=== PATIENT | male | born 1970 | race Caucasian/White ===

== ENCOUNTER 2017-07-01 19:58 | Emergency (ER) | payer OTHER ==
[2017-07-01] MEDS ORDERED: DIPH,PERTUS(ACELL)TETVAC-LF 0.5 ML VIAL IM ONE (20:04)
[2017-07-01 20:08] VITALS: TEMP 98.1
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
[2017-07-01 21:12] VITALS: RESP 18
[2017-07-01] MEDS ORDERED: KETOROLAC 30 MG/ML 1 ML VIAL IVP STA (21:43)
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
[2017-07-01 23:13] VITALS: BP 120/72; PULSE 81
== END 2017-07-01 22:37 | disposition home or self-care (01) ==
LOC: EC 19:58
DX: S91.011A Laceration without foreign body, right ankle, initial encounter (principal); Z23 Encounter for immunization; I10 Essential (primary) hypertension; Z79.899 Other long term (current) drug therapy; V86.59XA Driver of other special all-terrain or other off-road motor vehicle injured in nontraffic accident, initial encounter; Y92.89 Other specified places as the place of occurrence of the external cause
CPT/HCPCS: 71010; 72170; 73610; 90715; 99283; 96374; 12002; 90471; J1885

== ENCOUNTER 2017-07-03 09:58 | Inpatient (IN) | payer BC, OTHER ==
[2017-07-03] MEDS ORDERED: MORPHINE SULFATE 4 MG/ML SYRINGE IVP PRN (14:27)
[2017-07-03] MEDS ORDERED: NALOXONE 0.4 MG/ML 1 ML VIAL IV PRN (14:30)
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
[2017-07-03] MEDS: SODIUM CHLORIDE 0.9% 1,000 ML IV SCH ×2 (14:59→21:54)
[2017-07-03] MEDS ORDERED: ONDANSETRON 4 MG/2 ML VIAL IVP PRN (16:35)
[2017-07-03 17:09] LABS: Glucose,Whole Blood 104 mg/dL (75-99)
[2017-07-03] MEDS: LISINOPRIL 20 MG TAB PO SCH (17:29)
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
[2017-07-03] MEDS: MAGNESIUM HYDROXIDE 2,400 MG/10 ML CUP PO PRN (19:57)
[2017-07-03] MEDS: KETOROLAC 30 MG/ML 1 ML VIAL IVP SCH (19:57)
[2017-07-03] MEDS: TAMSULOSIN 0.4 MG CAP.ER.24H PO SCH (19:57)
[2017-07-03] MEDS: MORPHINE SULFATE 4 MG/ML SYRINGE IVP PRN (20:55)
[2017-07-04] MEDS: KETOROLAC 30 MG/ML 1 ML VIAL IVP SCH ×5 (00:44→23:31)
[2017-07-04 01:09] LABS: Glucose,Whole Blood 108 mg/dL (75-99)
[2017-07-04] MEDS: MORPHINE SULFATE 4 MG/ML SYRINGE IVP PRN ×2 (05:03→08:27)
[2017-07-04 07:32] LABS: Glucose,Whole Blood 108 mg/dL (75-99)
--- NOTE | 2017-07-04 08:09 | P.PN ---
Subjective The patient was admitted to the hospital last night with an acute ureteral calculus on the left. His 6 mm at the left ureterovesical junction. He feels much better this morning. The morphine has controlled his pain. He is resting comfortably this morning. We discussed spontaneous passage versus surgical manipulation. We'll see how he does over the next 12-24 hours before making a final decision as to intervention. This has been discussed at length with the patient. Objective - Vital Signs Vital signs: Vital Signs Temp 98.2 F 07/03/17 20:45 Pulse 97 07/04/17 00:00 Resp 16 07/04/17 00:00 BP 153/78 07/03/17 20:45 Pulse Ox 95 07/03/17 20:45 Intake & Output 07/03/17 07/04/17 07/04/17 18:59 06:59 18:59 Intake Total 200 600 Balance 200 600 Weight 106.141 kg Intake: Intake, IV Titration 200 600 Amount Sodium Chloride 0.9% 1, 200 600 000 ml @ 100 mls/hr IV . Q10H [facility] Rx#:[id number] Other: Voiding Method Toilet Urinal # Voids 2 - Labs Labs: Abnormal Lab Results - Last 24 Hours (Table) 07/03/17 07/04/17 07/04/17 Range/Units 16:26 01:08 07:26 POC Glucose (mg/dL) 104 H 108 H 108 H (75-99) mg/dL
[2017-07-04] MEDS: TAMSULOSIN 0.4 MG CAP.ER.24H PO SCH (08:26)
[2017-07-04] MEDS: LISINOPRIL 20 MG TAB PO SCH (08:27)
[2017-07-04] MEDS: SODIUM CHLORIDE 0.9% 1,000 ML IV SCH (08:29)
[2017-07-04 08:47] LABS: ALT 33 U/L (21-72); AST 26 U/L (17-59); Alkaline Phosphatase 41 U/L (38-126); Anion Gap 6 mmol/L; Blood Urea Nitrogen 18 mg/dL (9-20); Calcium 8.1 mg/dL (8.4-10.2); Carbon Dioxide 26 mmol/L (22-30); Chloride 109 mmol/L (98-107); Glucose 97 mg/dL (74-99); Non-African American GFR(MDRD) 51 (>60 ml/min/1.73 sqM); Potassium 4.1 mmol/L (3.5-5.1); Sodium 141 mmol/L (137-145); Total Bilirubin 0.9 mg/dL (0.2-1.3); Total Protein 5.4 g/dL (6.3-8.2)
[2017-07-04] MEDS ORDERED: LISINOPRIL 20 MG TAB PO SCH (09:00)
[2017-07-04 09:02] LABS: Basophils % (A) 0 %; CH 32.1; CHCM 35.1; Eosinophils % (A) 1 %; HCT 35.2 % (39.0-53.0); HDW 2.76; HGB 12.4 gm/dL (13.0-17.5); Luc # (Auto) 0.08; Luc % (Auto) 1; Lymphocytes # (A) 0.7 k/uL (1.0-4.8); Lymphocytes % (A) 9 %; MCH 32.3 pg (25.0-35.0); MCHC 35.2 g/dL (31.0-37.0); MCV 91.8 fL (80.0-100.0); Monocytes # (A) 0.5 k/uL (0-1.0); Monocytes % (A) 6 %; Neutrophils # (A) 6.7 k/uL (1.3-7.7); Neutrophils % (A) 84 %; RBC 3.84 m/uL (4.30-5.90); WBC 8.1 k/uL (3.8-10.6); WBC (Perox) 8.38
[2017-07-04 12:13] LABS: Glucose,Whole Blood 103 mg/dL (75-99)
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
[2017-07-04] MEDS: MAGNESIUM HYDROXIDE 2,400 MG/10 ML CUP PO PRN (15:38)
[2017-07-04 22:18] VITALS: PULSE 100; RESP 18
[2017-07-05] MEDS: KETOROLAC 30 MG/ML 1 ML VIAL IVP SCH ×2 (06:32→12:25)
--- NOTE | 2017-07-05 06:42 | P.PN ---
Subjective The patient is feeling much better. His pain is controlled with Toradol. He' ll be discharged home for spontaneous passage. I will see him in one week. Objective - Vital Signs Vital signs: Vital Signs Temp 98.4 F 07/04/17 22:17 Pulse 100 07/04/17 23:09 Resp 18 07/04/17 23:09 BP 130/66 07/04/17 22:17 Pulse Ox 92 L 07/04/17 22:17 Intake & Output 07/04/17 07/04/17 07/05/17 06:59 18:59 06:59 Intake Total 600 1200 Balance 600 1200 Weight 106.141 kg Intake: Intake, IV Titration 600 1200 Amount Sodium Chloride 0.9% 1, 600 1200 000 ml @ 100 mls/hr IV . Q10H [facility] Rx#:[id number] Other: Voiding Method Toilet Toilet Toilet Urinal Urinal Urinal # Voids 2 3 2 - Labs CBC & Chem 7: 07/04/17 07:41 07/04/17 07:41 Labs: Abnormal Lab Results - Last 24 Hours (Table) 07/04/17 07/04/17 07/04/17 Range/Units 07:26 07:41 07:41 RBC 3.84 L (4.30-5.90) m/uL Hgb 12.4 L (13.0-17.5) gm/dL Hct 35.2 L (39.0-53.0) % Plt Count 136 L (150-450) k/uL Lymphocytes # 0.7 L (1.0-4.8) k/uL Chloride 109 H (98-107) mmol/L Creatinine 1.49 H (0.66-1.25) mg/dL POC Glucose (mg/dL) 108 H (75-99) mg/dL Calcium 8.1 L (8.4-10.2) mg/dL Total Protein 5.4 L (6.3-8.2) g/dL Albumin 3.2 L (3.5-5.0) g/dL 07/04/17 Range/Units 12:02 RBC (4.30-5.90) m/uL Hgb (13.0-17.5) gm/dL Hct (39.0-53.0) % Plt Count (150-450) k/uL Lymphocytes # (1.0-4.8) k/uL Chloride (98-107) mmol/L Creatinine (0.66-1.25) mg/dL POC Glucose (mg/dL) 103 H (75-99) mg/dL Calcium (8.4-10.2) mg/dL Total Protein (6.3-8.2) g/dL Albumin (3.5-5.0) g/dL
[2017-07-05] MEDS: SODIUM CHLORIDE 0.9% 1,000 ML IV SCH ×3 (08:13→12:29)
[2017-07-05] MEDS: LISINOPRIL 20 MG TAB PO SCH (08:19)
[2017-07-05] MEDS: TAMSULOSIN 0.4 MG CAP.ER.24H PO SCH (08:19)
[2017-07-05 08:42] VITALS: BP 151/90; TEMP 99.2
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
== END 2017-07-05 15:35 | disposition home or self-care (01) | DRG 694 ==
LOC: 5MS5E 12:39
PROVIDERS: ADMIT Internal Medicine; ATTEND Internal Medicine
DX: N13.2 Hydronephrosis with renal and ureteral calculous obstruction (principal); R16.1 Splenomegaly, not elsewhere classified; I10 Essential (primary) hypertension; E78.5 Hyperlipidemia, unspecified; R91.8 Other nonspecific abnormal finding of lung field; T14.8 Other injury of unspecified body region; X58.XXXA Exposure to other specified factors, initial encounter; Y92.9 Unspecified place or not applicable; Z79.899 Other long term (current) drug therapy; Z87.442 Personal history of urinary calculi; Z82.49 Family history of ischemic heart disease and other diseases of the circulatory system
CPT/HCPCS: 80053; 85025

== ENCOUNTER → 2017-07-10 | Outpatient (CLI) | payer BC ==
--- NOTE | 2017-07-10 17:12 | XR ---
Abdomen HISTORY: Pain 20.0, kidney stone Frontal view of the abdomen on 2 images No comparisons Calcification over the lower pole right kidney measures approximately 9 mm. Smaller calcifications pr esent over both kidneys measuring only 2 to 3 mm, approximately 3-4 on the right one or 2 on the left . Calcifications are present within the pelvis which are indeterminate. Lung bases are clear. No mallorie l obstruction, no pneumoperitoneum IMPRESSION: Bilateral nephrolithiasis. Additional findings above.
== END | disposition home or self-care (01) ==
LOC: RADXRMAIN 15:32
PROVIDERS: ATTEND Urology
DX: N20.0 Calculus of kidney (principal)
CPT/HCPCS: 74000

== ENCOUNTER → 2017-09-13 | Outpatient (CLI) | payer BC ==
--- NOTE | 2017-09-19 13:38 | CT ---
EXAMINATION TYPE: CT chest w con DATE OF EXAM: 09/13/2017 COMPARISON: CT abdomen pelvis dated 07/03/2017 from [facility]. Report is reviewed. HISTORY: Abnormal lung findings. CT DLP: 463.8 mGycm, Automated exposure control for dose reduction was used. CONTRAST: Performed injected with 100 mL of Omnipaque 350. TECHNIQUE: Axial images were obtained at 5 mm thick sections. Reconstructed images are reviewed on [employer] computer in the coronal plane. FINDINGS: Portion of the thyroid visualized is normal. On lung windows there is a 0.5 cm peripheral posterior lateral left lung base nodule. Series 4 image 40's 7. There is a 0.5 cm linear opacity in the anterior periphery right middle lobe, series 4 image 37. A similar 0.5 cm linear opacity within the right middle lobe. Series 4 image 39. These are presen t within the [id number] on the lung windows from 07/03/2017 and are stable. There is a 0.6 cm nodule at the left mid hilar region lingula. Series 4 image 32. No enlarged mediastinal or hilar adenopathy is evident. There is a 0.8 cm pretracheal lymph node ne ar the level of the varun. The ascending aorta diameter at the level of the main pulmonary artery is 3.6 cm. The main pulmonary artery diameter at the bifurcation is 2.[address] sections are obtained through the upper abdomen. Abdomen is essentially unremarkable. IMPRESSIONS: 1. Small lower lung field nodules appear stable from the comparison of June 2017. 2. An additional nodule is identified within the [id number] at the left midlung measuring 0.5 cm. 3. Follow-up CT chest with contrast in 6 months is recommended to confirm stability.
== END | disposition home or self-care (01) ==
LOC: RADCTMAIN 18:47
PROVIDERS: ATTEND Internal Medicine Pulmonary Disease
DX: R91.8 Other nonspecific abnormal finding of lung field (principal)
CPT/HCPCS: 71260; Q9967

== ENCOUNTER 2020-03-20 13:02 | Inpatient (IN) | payer BC ==
[2020-03-20] MEDS ORDERED: IPRATROPIUM-ALBUTEROL 3 ML NEB INHALATION STA (13:38)
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
[2020-03-20] MEDS ORDERED: ALBUTEROL HFA INHALER INHALATION STA (13:45)
[2020-03-20 14:05] LABS: Basophils % (A) 0 %; Eosinophils # (A) 0.4 k/uL (0-0.7); Eosinophils % (A) 6 %; HCT 47.4 % (39.0-53.0); Lymphocytes % (A) 16 %; MCHC 33.8 g/dL (31.0-37.0); MCV 94.7 fL (80.0-100.0); Mean Platelet Volume 7.2; Monocytes # (A) 0.4 k/uL (0-1.0); Monocytes % (A) 6 %; Neutrophils # (A) 4.6 k/uL (1.3-7.7); Neutrophils % (A) 70 %; Platelet Count 208 k/uL (150-450); RDW 13.8 % (11.5-15.5); WBC 6.6 k/uL (3.8-10.6)
[2020-03-20 14:18] LABS: INR 0.9 (<1.2); Partial Thromboplastin Time 22.5 sec (22.0-30.0); Prothrombin Time 9.9 sec (9.0-12.0)
[2020-03-20 14:19] LABS: ALT 26 U/L (4-49); AST 30 U/L (17-59); African American GFR (CKD) >90 (>60 ml/min/1.73 sqM); Albumin 5.1 g/dL (3.5-5.0); Alkaline Phosphatase 66 U/L (38-126); Anion Gap 10 mmol/L; Blood Urea Nitrogen 16 mg/dL (9-20); C Reactive Protein <5.0 mg/L (<10.0); Calcium 9.6 mg/dL (8.4-10.2); Carbon Dioxide 25 mmol/L (22-30); Chloride 107 mmol/L (98-107); Glucose 105 mg/dL (74-99); LDH 565 U/L (313-618); Magnesium 2.1 mg/dL (1.6-2.3); Non-African American GFR(CKD) >90 (>60 ml/min/1.73 sqM); Potassium 4.1 mmol/L (3.5-5.1); Sodium 142 mmol/L (137-145); Total Bilirubin 1.1 mg/dL (0.2-1.3); Total Protein 8.2 g/dL (6.3-8.2)
--- NOTE | 2020-03-20 14:22 | XR ---
EXAMINATION TYPE: XR chest 1V portable DATE OF EXAM: 03/20/2020 Comparison: 07/01/2017 Clinical History: 49-year-old male shortness of breath, Suspected COVID-19 pneumonia Findings: Heart normal size. Aorta and pulmonary vasculature within normal limits. There is very subtle patchy density in the periphery of the right lower lung. No other consolidation or pleural effusion seen. Impression: Subtle patchy density at the periphery of the right lung could represent atelectasis or early infiltr ate such as from atypical pneumonia. Follow-up should be considered.
[2020-03-20] MEDS ORDERED: amLODIPine 5 MG TAB PO STA (15:04)
[2020-03-20] MEDS ORDERED: ENALAPRILAT 1.25 MG/ML 1 ML VIAL IVP PRN (15:04)
[2020-03-20] MEDS ORDERED: ENALAPRILAT 1.25 MG/ML 1 ML VIAL IVP STA (15:04)
[2020-03-20] MEDS ORDERED: ALBUTEROL HFA INHALER INHALATION PRN (15:05)
[2020-03-20] MEDS ORDERED: AZITHROMYCIN 500 MG in SODIUM CHLORIDE 0.9% 250 ML IVPB STA (15:05)
[2020-03-20] MEDS ORDERED: PNEUMONIA PROTOCOL UTILIZED 1 EACH MISC PO PRN (15:05)
[2020-03-20] MEDS: SODIUM CHLORIDE 0.9% 1,000 ML IV SCH (15:32)
--- NOTE | 2020-03-20 16:23 | CT ---
EXAMINATION TYPE: CT chest angio for PE DATE OF EXAM: 03/20/2020 COMPARISON: 02/24/2020 and 09/13/2017 HISTORY: 49-year-old male Shortness of breath and chest pain. TECHNIQUE: Contiguous axial scanning of the chest performed with IV Contrast, patient injected with 1 00 mL of Isovue 370. Coronal/sagittal MIP reconstructions performed. CT DLP: 580.7 mGycm Automated exposure control for dose reduction was used. FINDINGS: Heart normal size without pericardial effusion. No finding of intraventricular septum or reflux of co ntrast into the hepatic veins. Aortic root is ectatic at 3.8 cm. Ectatic upper descending thoracic aorta at 3.2 cm. 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 The patient is breathing during the scan. No large central or definite lobar branch pulmonary embolus . Many of the segmental and subsegmental branches are nondiagnostic. Prominent 1.2 cm right hilar lymph node. Six-month follow-up CT recommended to ensure stability/resol ution. Mild diffuse bronchial wall thickening. 4 mm peripheral left basilar pulmonary nodule, axial image 100, unchanged from 2017 compatible with a benign etiology. Additional 4 mm right middle lobe pulmonary nodule, axial image 94 is also stable and axial image 99 as well. Visualized upper abdomen shows no gross abnormality. Bones: No osseous destructive process. IMPRESSION: 1. THE PATIENT IS BREATHING DURING THE SCAN. NO LARGE CENTRAL OR LOBAR PULMONARY EMBOLUS. MANY OF THE SEGMENTAL AND MORE DISTAL ARTERIAL BRANCHES ARE NONDIAGNOSTIC AND EMBOLI IN THESE LOCATIONS CANNOT B E ADEQUATELY EXCLUDED ON THE BASIS OF THIS EXAM. 2. MILD DIFFUSE BRONCHIAL WALL THICKENING COULD REFLECT BRONCHITIS OR ASTHMA. 3. MILDLY ENLARGED 1.2 CM RIGHT HILAR LYMPH NODE MAY BE REACTIVE/POST INFLAMMATORY. SIX-MONTH FOLLOW- UP CONTRAST ENHANCED CT CHEST RECOMMENDED TO ENSURE STABILITY OR RESOLUTION.
[2020-03-20] MEDS ORDERED: LABETALOL 5 MG/ML VIAL MDV IVP STA (16:48)
[2020-03-20] MEDS ORDERED: ALBUTEROL HFA INHALER INHALATION SCH (18:00)
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
[2020-03-20] MEDS ORDERED: methylPREDNISolone SOD SUCCI 125 MG/2 ML VIAL IV STA (19:23)
[2020-03-20] MEDS: SYMBICORT 160-4.5 MCG INHALER INHALATION SCH (19:42)
[2020-03-20] MEDS: ALBUTEROL HFA INHALER INHALATION SCH ×2 (19:42→23:44)
[2020-03-20] MEDS: LISINOPRIL 20 MG TAB PO SCH (20:31)
[2020-03-20] MEDS: ASPIRIN 81 MG PO SCH (20:31)
[2020-03-20] MEDS: CARVEDILOL 12.5 MG TAB PO SCH (20:31)
[2020-03-20 23:14] LABS: Ferritin 261.1 ng/mL (22.0-322.0)
[2020-03-21] MEDS: SODIUM CHLORIDE 0.9% 1,000 ML IV SCH ×3 (01:04→23:57)
[2020-03-21] MEDS: methylPREDNISolone SOD SUCCI 125 MG/2 ML VIAL IV SCH ×4 (01:04→17:41)
[2020-03-21] MEDS: ALBUTEROL HFA INHALER INHALATION SCH ×7 (01:16→23:38)
[2020-03-21] MEDS: SYMBICORT 160-4.5 MCG INHALER INHALATION SCH ×2 (07:16→20:15)
--- NOTE | 2020-03-21 07:16 | XR ---
EXAMINATION TYPE: XR chest 1V DATE OF EXAM: 03/21/2020 HISTORY: pneumonia. REFERENCE: Previous study dated 03/20/2020. FINDINGS: The heart is mildly enlarged. There has developed. Small opacity in the cardiophrenic angle on the left. This was not present previously. Previously described interstitial infiltrates in the p eriphery are not clearly visualized. IMPRESSION: 1. MILD CARDIOMEGALY. 2. DEVELOPING OPACITY NEAR THE CARDIOPHRENIC ANGLE ON THE LEFT MAY REPRESENT INFILTRATE. FOLLOW-UP WO ULD BE SUGGESTED.
[2020-03-21 08:16] LABS: African American GFR (CKD) >90 (>60 ml/min/1.73 sqM); Anion Gap 9 mmol/L; Blood Urea Nitrogen 15 mg/dL (9-20); Calcium 9.3 mg/dL (8.4-10.2); Carbon Dioxide 23 mmol/L (22-30); Chloride 109 mmol/L (98-107); Glucose 154 mg/dL (74-99); Magnesium 2.1 mg/dL (1.6-2.3); Non-African American GFR(CKD) >90 (>60 ml/min/1.73 sqM); Phosphorus 2.4 mg/dL (2.5-4.5); Sodium 141 mmol/L (137-145)
[2020-03-21] MEDS: TRIAMTERENE-HCTZ 37.5-25MG 1 EACH TAB PO SCH (08:21)
[2020-03-21] MEDS: ENOXAPARIN 40 MG/0.4 ML SYRINGE SQ SCH (08:21)
[2020-03-21] MEDS: LEVOFLOXACIN 500 MG TAB PO SCH (08:21)
[2020-03-21] MEDS: CARVEDILOL 12.5 MG TAB PO SCH ×2 (08:22→17:42)
[2020-03-21] MEDS: ASPIRIN 81 MG PO SCH ×2 (08:22→21:02)
[2020-03-21 08:24] LABS: Basophils % (A) 0 %; Eosinophils # (A) 0.1 k/uL (0-0.7); Eosinophils % (A) 1 %; HCT 42.5 % (39.0-53.0); HGB 14.9 gm/dL (13.0-17.5); Lymphocytes # (A) 0.6 k/uL (1.0-4.8); Lymphocytes % (A) 8 %; MCH 31.8 pg (25.0-35.0); MCHC 35.1 g/dL (31.0-37.0); MCV 90.4 fL (80.0-100.0); Mean Platelet Volume 7.3; Monocytes # (A) 0.1 k/uL (0-1.0); Monocytes % (A) 1 %; Neutrophils # (A) 6.9 k/uL (1.3-7.7); Neutrophils % (A) 90 %; Platelet Count 181 k/uL (150-450); RDW 13.9 % (11.5-15.5); WBC 7.7 k/uL (3.8-10.6)
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
[2020-03-21] MEDS ORDERED: AZITHROMYCIN 500 MG TAB PO SCH (16:00)
--- NOTE | 2020-03-21 17:59 | P.PN ---
Subjective Progress Note Date: 03/21/20 (delayed charting seen at 1145) Principal diagnosis: shortness of breath Patient is a 49-year-old male with hypertension dyslipidemia, possible new onset COPD who presented to the emergency department with complaints of shortness of breath. In the ER he underwent extensive evaluation. On arrival he was tachycardic with a heart rate of 101 and hypertensive with a blood pressure 175/110. Laboratory analysis was essentially unremarkable, troponin was negative, CRP negative, BNP 51.Covid-19 testing was negative. Chest x-ray shows subtle developing density in the right lung. He was given a dose of Rocephin, Zithromax, and bronchodilators. Arrangements were made for admission for acute exacerbation of COPD. He also underwent a CTA of the chest which showed no large central or lobar pulmonary emboli, mild diffuse bronchial wall thickening reflective of bronchitis or asthma, and a mildly enlarged 1.2 cm right hilar lymph node. He was started on steroids. Pulmonary was consulted. Patient seen and examined at bedside. His breathing is much easier than today, he is able to tolerate lying flat. He is still feeling somewhat fatigued. He denies any nausea, vomiting, chest pain. Discussed with him and his that we will not be testing his blood for mold toxicity, plan for outpatient ALLERGY evaluation and pulmonary function test. That he likely would not have a formal diagnosis prior to being discharged from the hospital and that a pulmonary function test needs to be completed when he is not exacerbated. We discussed that he will follow-up with pulmonary and will need to continue off work. Objective - Vital Signs Vital signs: Vital Signs Temp 98.2 F 03/21/20 15:00 Pulse 100 03/21/20 15:00 Resp 18 03/21/20 16:00 BP 168/94 03/21/20 15:00 Pulse Ox 95 03/21/20 15:00 Intake & Output 03/20/20 03/21/20 03/21/20 18:59 06:59 18:59 Intake Total 1200 532 Balance 1200 532 Weight 109.769 kg Intake: Intake, IV Titration 1200 Amount Sodium Chloride 0.9% 1, 1200 000 ml @ 100 mls/hr IV . Q10H [facility] Rx#:[id number] Oral 532 Other: Voiding Method Toilet # Voids 1 1 - Exam General: non toxic, no distress, appears at stated age Derm: warm, dry Head: atraumatic, normocephalic, symmetric Eyes: EOMI, no lid lag, anicteric sclera Mouth: no lip lesion, mucus membranes moist Cardiovascular: S1S2 reg, no murmur, positive posterior tibial pulse bilateral, Lungs: Diffuse wheeze bilaterally improved from yesterday, no rhonchi, no rales , no accessory muscle use, no conversational dyspnea Abdominal: soft, nontender to palpation, no guarding, no appreciable organomegaly Ext: no gross muscle atrophy, no edema, no contractures Neuro: CN II-XI grossly intact, no focal neuro deficits Psych: Alert, oriented, appropriate affect - Labs CBC & Chem 7: 03/21/20 07:33 03/21/20 07:33 Labs: Abnormal Lab Results - Last 24 Hours (Table) 03/21/20 03/21/20 Range/Units 07:33 07:33 Lymphocytes # 0.6 L (1.0-4.8) k/uL Chloride 109 H (98-107) mmol/L Glucose 154 H (74-99) mg/dL Phosphorus 2.4 L (2.5-4.5) mg/dL Microbiology - Last 24 Hours (Table) 03/20/20 14:36 Blood Culture - Preliminary Blood No Growth after 24 hours Assessment and Plan Assessment: acute exacerbation of probable reactive airway disease, bronchitis with acute respiratory failure, failed outpatient treatment - steroid q 12 hours - Levaquin (has been on zithromax and doxy in the last 30 days) - abuterol, symbicort - pulm consult - CTA chest negative for PE but does show enlarged lymphnode - pulm hygeine - Echo recently done at [facility] office will request records on Sunday. - outpatient allergy testing HTN urgency - follow BP - Triamterene hydrochlorothiazide, lisinopril, and Coreg - Follow blood pressures DVT prophylaxis: lovenox Discussed with: patient, nursing, Anticipated discharge date: 1-[address]: home A total of 25 minutes was spent on the care of this complex patient more than 50% of the time was spent in counseling and care coordination.
[2020-03-21] MEDS: LISINOPRIL 20 MG TAB PO SCH (21:02)
[2020-03-22] MEDS: ALBUTEROL HFA INHALER INHALATION SCH ×3 (03:58→12:15)
[2020-03-22] MEDS ORDERED: methylPREDNISolone SOD SUCCI 125 MG/2 ML VIAL IV SCH (06:00)
[2020-03-22 07:30] VITALS: BP 145/80; PULSE 90; RESP 15; TEMP 97.6
[2020-03-22] MEDS: SODIUM CHLORIDE 0.9% 1,000 ML IV SCH (07:46)
[2020-03-22] MEDS: ASPIRIN 81 MG PO SCH (07:46)
[2020-03-22] MEDS: CARVEDILOL 12.5 MG TAB PO SCH (07:46)
[2020-03-22] MEDS: ENOXAPARIN 40 MG/0.4 ML SYRINGE SQ SCH (07:47)
[2020-03-22] MEDS: LEVOFLOXACIN 500 MG TAB PO SCH (07:47)
[2020-03-22] MEDS: TRIAMTERENE-HCTZ 37.5-25MG 1 EACH TAB PO SCH (07:47)
[2020-03-22] MEDS: SYMBICORT 160-4.5 MCG INHALER INHALATION SCH (08:33)
--- NOTE | 2020-03-22 11:25 | P.DS ---
Providers Date of admission: 03/20/20 15:05 Expected date of discharge: 03/22/20 Attending physician: Ana Donnelly MD Consults: 03/20/20 15:05 Consult Physician Routine Consulting Provider: Jenny Gupta Consult Reason/Comments: dyspnea Do you want consulting provider notified?: Yes [facility] Course: Discharge Diagnosis: Bronchitis, subacute Acute reactive airway disease HTN urgency Hospital Course: Patient is a 49-year-old male with hypertension dyslipidemia, possible new onset COPD who presented to the emergency department with complaints of shortness of breath. In the ER he underwent extensive evaluation. On arrival he was tachycardic with a heart rate of 101 and hypertensive with a blood pressure 175/110. Laboratory analysis was essentially unremarkable, troponin was negative, CRP negative, BNP 51.Covid-19 testing was negative. Chest x-ray shows subtle developing density in the right lung. He was given a dose of Rocephin, Zithromax, and bronchodilators. Arrangements were made for admission for acute exacerbation of COPD. He also underwent a CTA of the chest which showed no large central or lobar pulmonary emboli, mild diffuse bronchial wall thickening reflective of bronchitis or asthma, and a mildly enlarged 1.2 cm right hilar lymph node. He was started on steroids. Pulmonary was consulted who agreed with steroids and bronchodilators. His brething improved greatly and he was determined stable for discharge. He will complete a 3 weeks course of steroids per pulmonary, abx for 5 days, and continue on albuterol and symbicort. He will continue to be off work through . Patient seen and examined at bedside.Feeling much improved, back to baseline, no chest pain, breathing and wheezing better. Vital signs reviewed and stable. General: non toxic, no distress, appears at stated age Derm: warm, dry Head: atraumatic, normocephalic, symmetric Eyes: EOMI, no lid lag, anicteric sclera Mouth: no lip lesion, mucus membranes moist Cardiovascular: S1S2 reg, no murmur, positive posterior tibial pulse bilateral, Lungs: CTA bilateral, no rhonchi, no rales , no accessory muscle use Abdominal: soft, nontender to palpation, no guarding, no appreciable organomegalyexcept equal Ext: no gross muscle atrophy, no edema, no contractures Neuro: CN II-XI grossly intact, no focal neuro deficits Psych: Alert, oriented, appropriate affect A total of 42 minutes of time were spent preparing this complex discharge summary . Patient Condition at Discharge: Stable Plan - Discharge Summary Discharge Rx Participant: No New Discharge Prescriptions: New Levofloxacin [Levaquin] 500 mg PO DAILY #3 tab predniSONE 0 mg PO DIRECTED #78 tab Continue Ipratropium-Albuterol Nebulize [Duoneb 0.5 mg-3 mg/3 ml Soln] 3 ml INHALATION RT-Q4H Lisinopril [Zestril] 40 mg PO HS Budesonide/Formoterol Fumarate [Symbicort 160-4.5 Mcg Inhaler] 2 puff INHALATION RT-BID Carvedilol [Coreg] 12.5 mg PO BID Aspirin EC [Ecotrin Low Dose] 81 mg PO BID Triamterene/Hydrochlorothiazid [Triamterene-Hctz 37.5-25 mg Tb] 1 tab PO DAILY Changed Albuterol Sulfate [Ventolin HFA] 2 puff INHALATION RT-Q2H PRN #0 PRN Reason: Shortness Of Breath Discharge Medication List Aspirin EC [Ecotrin Low Dose] 81 mg PO BID 03/20/20 [History] Budesonide/Formoterol Fumarate [Symbicort 160-4.5 Mcg Inhaler] 2 puff INHALATION RT-BID 03/20/20 [History] Carvedilol [Coreg] 12.5 mg PO BID 03/20/20 [History] Ipratropium-Albuterol Nebulize [Duoneb 0.5 mg-3 mg/3 ml Soln] 3 ml INHALATION RT-Q4H 03/20/20 [History] Lisinopril [Zestril] 40 mg PO HS 03/20/20 [History] Triamterene/Hydrochlorothiazid [Triamterene-Hctz 37.5-25 mg Tb] 1 tab PO DAILY 03/20/20 [History] Albuterol Sulfate [Ventolin HFA] 2 puff INHALATION RT-Q2H PRN #0 03/22/20 [Rx] Levofloxacin [Levaquin] 500 mg PO DAILY #3 tab 03/22/20 [Rx] predniSONE 0 mg PO DIRECTED #78 tab 03/22/20 [Rx] Follow up Appointment(s)/Referral(s): Rabia Knox NPC [Primary Care Provider] - 1-2 days Jenny Gupta MD [STAFF PHYSICIAN] - 2 Weeks Activity/Diet/Wound Care/Special Instructions: Activity: as tolerated Diet: regular Discharge/Stand Alone Forms: Work/Release Restrictions Form Discharge Disposition: HOME SELF-CARE
--- NOTE | 2020-03-22 11:48 | P.PN ---
Subjective Progress Note Date: 03/22/20 Principal diagnosis: Subacute bronchitis, cough, shortness of breath This is a 49-year-old male patient, a lifetime nonsmoker is been having respiratory difficulty since December 2019. The patient was having increased cough and congestion wheezing. He presented to his primary care physician and he was initially given a course of Z-Johnie with limited improvement. Following that was given Ventolin rescue inhaler. He continued to be symptomatic and upon subsequent wkwe-[id number] visits with his primary care physician the patient was started on Symbicort and the patient was also given a computed tomography scan of the chest that showed no acute abnormalities. There was some mild diffuse bronchial wall thickening. There was a mild enlargement but centimeter right hilar lymph node. The patient yesterday presented to [facility] for ongoing symptoms. He was spastic and wheezy. He was also tachycardic. His blood work was essentially within normal limits. BNP level was nonelevated. Hermilo 19 evaluation was negative. Rest of the left were essentially unr emarkable. The patient got transferred to our hospital for further evaluation. Over the past 24 hours was given bronchodilators and IV steroids and he is markedly improved and is back to his baseline. No hemoptysis. No pleurisy. No history of any personal asthma. 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 He did not have any weaning difficulties of the younger age. No recurrent pneumonias recurrent bronchitis. no history of environmental ALLERGIES. His only medical problem is hypertension. On 03/22/2020 patient seen in follow-up on the general medical floor, he is resting comfortably in bed, in no acute distress, room air pulse ox is 95%, lung sounds are clear, no rhonchi or wheezing, breathing easier, blood and sputum cultures have been negative, no new chest x-ray today, no new labs, improving, he's been treated with antibiotics, steroids, breathing treatments, improving, from pulmonary perspective he can be considered for discharge home today with outpatient follow-up in the pulmonary clinic Objective - Vital Signs Vital signs: Vital Signs Temp 97.6 F 03/22/20 07:00 Pulse 90 03/22/20 07:00 Resp 15 03/22/20 07:00 BP 145/80 03/22/20 07:00 Pulse Ox 95 03/22/20 07:00 Intake & Output 03/21/20 03/22/20 03/22/20 18:59 06:59 18:59 Intake Total 828 120 560 Balance 828 120 560 Intake: Oral 828 120 560 Other: Voiding Method Toilet Toilet # Voids 1 1 - Exam GENERAL EXAM: Alert, very pleasant, 49-year-old white male, on room air, with a pulse ox of 95%, comfortable in no apparent distress. HEAD: Normocephalic/atraumatic. EYES: Normal reaction of pupils, equal size. Conjunctiva pink, sclera white. NOSE: Clear with pink turbinates. THROAT: No erythema or exudates. NECK: No masses, no JVD, no thyroid enlargement, no adenopathy. CHEST: No chest wall deformity. Symmetrical expansion. LUNGS: Equal air entry with no crackles, wheeze, rhonchi or dullness. CVS: Regular rate and rhythm, normal S1 and S2, no gallops, no murmurs, no rubs ABDOMEN: Soft, nontender. No hepatosplenomegaly, normal bowel sounds, no guarding or rigidity. EXTREMITIES: No clubbing, no edema, no cyanosis, 2+ pulses and upper and lower extremities. MUSCULOSKELETAL: Muscle strength and tone normal. SPINE: No scoliosis or deformity SKIN: No rashes CENTRAL NERVOUS SYSTEM: Alert and oriented -3. No focal deficits, tone is normal in all 4 extremities. PSYCHIATRIC: Alert and oriented -3. Appropriate affect. Intact judgment and insight. - Labs CBC & Chem 7: 03/21/20 07:33 03/21/20 07:33 Labs: Microbiology - Last 24 Hours (Table) 03/21/20 16:30 Gram Stain - Final Sputum Sputum Culture - Final 03/20/20 14:36 Blood Culture - Preliminary Blood No Growth after 24 hours Assessment and Plan Plan: Assessment: 1 shortness of breath with symptoms related to subacute bronchitis without clear evidence of any pneumonia or any form of chronic lung disease. The patient's left thumb nonsmoker. COPD is full. 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 I am a bit on under- impressed with his symptoms. In fact, on today's evaluation I find this patient asymptomatic and his lung exam is clear. I reviewed the CAT scan of the chest and I agree with some changes consistent with bronchitis. He has responded nicely to bronchodilators and steroids. 2 hypertension Plan: Continues to clinically improve, no acute events overnight, blood and sputum cultures are negative, patient is afebrile, he's been treated with the IV steroids, antibiotics and breathing treatments, improving, can be considered for discharge home today with outpatient follow-up in the pulmonary clinic with Dr. Gupta in 7-10 days. Will need outpatient PFT I performed a history & physical examination of the patient and discussed their management with my nurse practitioner, Kathy Loyd. I reviewed the nurse practitioner's note and agree with the documented findings and plan of care. Lung sounds are positive for clear breath sounds. The findings and the impression was discussed with the patient. I attest to the documentation by the nurse practitioner. Time with Patient: Less than 30
== END 2020-03-22 13:58 | disposition home or self-care (01) | DRG 190 ==
LOC: EC 13:02 → 4SSUR 15:05
PROVIDERS: ADMIT Family Medicine; ATTEND Family Medicine
DX: J44.1 Chronic obstructive pulmonary disease with (acute) exacerbation (principal); J96.00 Acute respiratory failure, unspecified whether with hypoxia or hypercapnia; J44.0 Chronic obstructive pulmonary disease with (acute) lower respiratory infection; J20.9 Acute bronchitis, unspecified; Z20.828 Contact with and (suspected) exposure to other viral communicable diseases; E78.5 Hyperlipidemia, unspecified; I10 Essential (primary) hypertension; J45.909 Unspecified asthma, uncomplicated; R59.0 Localized enlarged lymph nodes; I16.0 Hypertensive urgency; Z79.51 Long term (current) use of inhaled steroids; Z79.899 Other long term (current) drug therapy; Z82.49 Family history of ischemic heart disease and other diseases of the circulatory system; Z82.5 Family history of asthma and other chronic lower respiratory diseases; Z77.090 Contact with and (suspected) exposure to asbestos; Z57.2 Occupational exposure to dust
CPT/HCPCS: 36415; 71045; 71275; 80048; 80053; 82728; 83605; 83615; 83735; 83880; 84100; 84145; 84484; 85025; 85610; 85730; 86140; 87040; 87070; 87205; 87635; 93005; 94640; 96365; 96366; 96367; 96375; 99285

== ENCOUNTER 2024-05-05 07:52 | Day surgery (SDC) | payer BC ==
[~2024-05-05 07:52] MED LIST: ALPRAZolam 0.25 MG TAB PO PRN; ALPRAZolam 0.5 MG TAB PO PRN; ASPIRIN 325 MG TAB PO STA; HEPARIN SODIUM,PORCINE (1 ML) 2,500 UNIT in SODIUM CHLORIDE 0.9% 250 ML IRRIGATION PRN; HEPARIN SODIUM,PORCINE 10,000 UNIT in SODIUM CHLORIDE 0.9% 1,000 ML IRRIGATION PRN; NITROGLYCERIN SL TABS 0.4 MG TAB SUBLINGUAL PRN
[2024-05-05 08:24] VITALS: RESP 18; TEMP 98.1
[2024-05-05] MEDS: SODIUM CHLORIDE 0.9% 1,000 ML in EMPTY BAG 1 BAG IV SCH (08:24)
[2024-05-05] MEDS: IV FLUID CONTINUATION 1,000 ML IV ONE (08:25)
[2024-05-05] MEDS ORDERED: VERAPAMIL 2.5 MG/ML 2 ML AMP ONE ×2 (09:09→10:22)
[2024-05-05] MEDS ORDERED: LIDOCAINE 1% INJ 10MG/ML (20 ML MDV) ONE ×2 (09:10→10:22)
[2024-05-05] MEDS ORDERED: fentaNYL (PF) 50 MCG/ML 2 ML AMP ONE (10:28)
[2024-05-05] MEDS ORDERED: HEPARIN SODIUM 1,000 UN/ML (10ML VL) ONE (10:28)
[2024-05-05] MEDS: MIDAZOLAM 2 MG/2 ML VIAL IVP ONE ×2 (10:32→10:43)
[2024-05-05] MEDS: fentaNYL (PF) 50 MCG/ML 2 ML AMP IVP ONE (10:32)
[2024-05-05] MEDS: LIDOCAINE 1% INJ 10MG/ML (20 ML MDV) SQ ONE (10:34)
[2024-05-05] MEDS: VERAPAMIL SYRINGE (5 MG/10 ML) INTRAARTER ONE (10:35)
[2024-05-05] MEDS: HEPARIN SODIUM 1,000 UN/ML (10ML VL) IVP ONE (10:46)
[2024-05-05] MEDS: IOPAMIDOL-370 100ML BTL IVP ONE (11:03)
[2024-05-05] MEDS ORDERED: RX INFO: IV CONTRAST WAS GIVEN 1 EACH MISC MISCELLANE PRN (11:50)
--- NOTE | 2024-05-05 11:50 | P.CARDCATH ---
Date of Procedure: 05/05/24 Description of Procedure: DIAGNOSTIC CORONARY ANGIOGRAPHY and LEFT HEART CATH REPORT PROCEDURES PERFORMED: Left heart catheterization Selective coronary angiography Moderate conscious sedation 31 mins [Ultrasound assisted] Right radial access INDICATION: 40-year-old who follows up with Dr. Albright was found to have heart failure with mildly reduced EF, mild cardiomyopathy with EF of 40-45%. He had a nuclear MPI stress test which showed fixed inferior perfusion defect. Because of his cardiomyopathy which is not improving with beta-madelyn and LAURI inhibitor's and with positive stress test, he was scheduled for a outpatient heart catheterization procedure. CONSENT: I have explained the procedural steps of above-mentioned procedures in layman's terms to the patient. I discussed the risks (including but not limited to stroke, emergent vascular or cardiac surgery or ), benefits and alternat luisa therapies for the above-mentioned procedure. I discussed the risks of sedation/analgesia and blood product administration (if indicated). The patient has indicated understanding and acceptance of these risks. Conscious Sedation: Patient's ECG, heart rate, blood pressure, pulse oximetry were monitored throughout the duration of procedure under my direct supervision. 3 mg Versed and 50 mg Fentanyl were used for induction of moderate conscious sedation. Total duration of moderate concious sedation 31 minutes. PROCEDURE: After explaining the risks, benefits and alternatives of the above mentioned procedures in detail to the patient, informed consent was obtained. Patient was taken to the catheterization lab, prepped and draped in usual sterile fashion using universal precuations. Barbow and av test were performed to confirm adequate perfusion to fingers. Ultrasound was used to identify the radial artery. 1% lidocaine was infiltrated over the right radial artery. A 6-Greek sheath was placed and secured in the right radial artery using modified Seldinger technique. The sheath was flushed and 5 mg verapamil was administered intra-arterially. J tipped wire was advanced under fluoroscopic guidance. Once the wire tip reached aortic root 6500 units of IV heparin was given. JL 4 diagnostic catheter was advanced over the J-wire. The wire was removed, catheter was flushed and manipulated under fluoroscopy to selectively engaged the left coronary ostium. Left coronary angioplasty was performed in different angiographic projections. Over the wire JR4 diagnostic catheter was advanced. The wire in place the catheter was manipulated to cross the aortic valve and entered into LV under fluoroscopy guidance. The wire was removed and the catheter was flushed. LV pressures were obtained and pullback was performed under fluoroscopy. Catheter was manipulated to selectively engage the right coronary ostium. Catheter could not selectively engage the right coronary ostium. This catheter was exchanged for JR 5 diagnostic catheter. It was manipulated to selectively engage the right coronary ostium. Right coronary angiography was performed in different angiographic projections. Catheter was removed over the wire. Radial sheath was flushed. The right radial sheath was removed and a TR band was placed with excellent patent hemostasis was achieved. The patient tolerated the procedure well. Patient was transported back to the post catheterization holding area in stable condition. Angiographic images were reviewed in detail. HEMODYNAMICS: Aortic Pressure: 91/58 mmHg. LV pressure: 98/0 mmHg. LVEDP 4 mmHg. There was no significant gradient across the aortic valve. SELECTIVE CORONARY ARTERIOGRAPHY: LEFT MAIN: The left main is a large caliber vessel which bifurcates into the LAD and circumflex. Left main appears angiographically normal. LEFT ANTERIOR DESCENDING CORONARY ARTERY: Ostial LAD has 40 to 50% stenosis which extended to the proximal LAD. It is nonflow limiting. Mid and distal LAD is moderate caliber vessel with mild luminal irregularities. Distal LAD reaches up to the apex. LAD gives rise to small diagonal branches appears devaughn ographically normal. LEFT CIRCUMFLEX CORONARY ARTERY: It is co-dominant vessel. It is a large- caliber vessel. Proximal LCx appears angiographically normal and gives rise to a small OM1 branch. Proximal LAD bifurcates into OM 2 and OM 3 branch. OM 2 branch and mid segment has 30 to 40% luminal narrowing. OM 3 has mild luminal irregularities. RIGHT CORONARY ARTERY: RCA has an anterior takeoff. Co-dominant vessel. Proximal RCA is very tortuous and has a hair pin loop. The right coronary artery is a large caliber vessel which gives PDA and PLV branch. Proximal and mid RCA has mild luminal irregularities 10-20% disease. IMPRESSION: Moderate 50% ostial LAD disease 30 to 40% mid OM2 disease Mild RCA disease Normal LVEDP Nonischemic cardiomyopathy PLAN: Aggressive risk factor modification per most recent ACC/AHA guidelines. 150 cc fluids for 3 hours Discharge home in 3 hours Follow-up in the office in 1-2 weeks. Performing Physician Alvin Levine MD, FACC, RPVI Thank you for allowing [facility] to participate in this patient's care. Feel free to reach out in case of any followup questions.
[2024-05-05] MEDS ORDERED: SODIUM CHLORIDE 0.9% 1,000 ML IV SCH (12:00)
[2024-05-05 14:38] VITALS: BP 114/61; PULSE 62
== END 2024-05-05 14:43 | disposition home or self-care (01) ==
LOC: CATHCVL 07:52
PROVIDERS: ATTEND Student in an Organized Health Care Education/Training Program
DX: I42.8 Other cardiomyopathies (principal); I25.10 Atherosclerotic heart disease of native coronary artery without angina pectoris; I11.0 Hypertensive heart disease with heart failure; I50.9 Heart failure, unspecified; Z79.899 Other long term (current) drug therapy
CPT/HCPCS: 93458; 76937; 99152; 99153; C1769 ×2; C1894; J2250; J2001; J3010; J1644; Q9967